=== PATIENT | female | born 1995 | race Caucasian/White ===

== ENCOUNTER 2023-03-20 00:04 | Inpatient (IN) | payer MEDICAID, OTHER ==
[2023-03-20 00:24] VITALS: BMI 40.0
[2023-03-20] MEDS ORDERED: hydrALAZINE 20 MG/ML VIAL SLOW IVP PRN ×3 (00:49→13:42)
[2023-03-20] MEDS ORDERED: Acetaminophen 325 MG TAB PO PRN ×2 (00:53→06:06)
[2023-03-20] MEDS: Lactated Ringer's 1,000 ML IV SCH ×2 (01:40→19:23)
[2023-03-20 02:17] LABS: #Neutrophils 19.2 10x3/uL (1.5-8.4); %Basophils 0.2 % (0.0-2.0); %Lymphocytes 5.1 % (18.0-47.0); %Monocytes 4.8 % (0.0-10.0); %Neutrophils 89.5 % (40.0-75.0); Hemoglobin 12.2 g/dL (12.0-15.5); Mean Corpuscular HGB CONC 32.1 g/dL (32.0-36.0); Mean Corpuscular Hemoglobin 25.7 pg (27.0-33.0); Mean Platelet Volume 9.5 fl (7.4-10.4); Platelet Count 362 10x3/uL (150-450); RBC Distribution Width 14.2 % (11.5-14.5); Red Blood Cell (RBC) Count 4.75 10x6/uL (3.90-5.03); White Blood Cell (WBC) Count 21.5 10x3/uL (3.5-10.5)
[2023-03-20 02:18] LABS: ALT (SGPT) 9 U/L (8-55); AST (SGOT) 17 U/L (5-34); Albumin 3.8 g/dL (3.5-5.0); Alkaline Phosphatase 142 U/L (40-110); Anion Gap 17 mmol/L (10-20); BUN (Urea Nitrogen) 8 mg/dL (7.0-18.7); Bilirubin, Total 0.7 mg/dL (0.2-1.2); Calc. Creatinine Clearance 192 mL/min (70-130); Carbon Dioxide 20 mmol/L (22-29); Chloride 101 mmol/L (98-107); Estimated GFR 122; Globulin 4.2 g/dL (2.4-3.5); Glucose 95 mg/dL (70-105); Potassium 3.9 mmol/L (3.5-5.1); Sodium 134 mmol/L (136-145)
[2023-03-20] MEDS ORDERED: Piperacillin/Tazobactam 3.375 GM in Sodium Chloride 0.9% 100 ML IVPB SCH (02:45)
[2023-03-20 02:49] LABS: Bilirubin Neg (Negative); Blood, Urine 50 (Negative); Clarity Clear (Clear); Glucose, Urine (Dipstick) Normal (Negative); Ketone, Urine Negative (Negative); Leukocyte 25 (Negative); Nitrite Negative (Negative); Protein, Urine (Dipstick) Negative (Neg-Trace); Specific Gravity, Urine 1.005 (1.005-1.030); Urobilinogen Normal mg/dL (Less than 2)
[2023-03-20 03:09] LABS: RBC/HPF 0-3 HPF (0-3)
[2023-03-20 03:10] LABS: Bacteria/HPF 1+ HPF (None Seen); CAUTI Indications for Culture Pregnancy; Squamous Epithelial 0-3 HPF (0-3); Urine Culture Reflex Yes Yes; WBC/HPF 0-3 HPF (0-3)
[2023-03-20 03:57] LABS: Fetal Membranes Rupture No Membranes Rupture (No Rupture)
[2023-03-20] MEDS ORDERED: fentaNYL 50 mcg/mL 1 mL Vial SLOW IVP PRN (04:21)
[2023-03-20] MEDS ORDERED: Methylergonovine 0.2 MG/ML VIAL IM PRN (04:21)
[2023-03-20] MEDS ORDERED: Misoprostol 200 MCG TAB PR PRN (04:21)
[2023-03-20] MEDS ORDERED: Ondansetron PF 4 MG/2 ML Vial IVP PRN ×3 (04:21→13:42)
[2023-03-20] MEDS ORDERED: Diphenoxylate HCl/Atropine Tablet PO PRN (04:21)
[2023-03-20] MEDS ORDERED: Carboprost 250 MCG/ML AMP IM PRN (04:21)
[2023-03-20] MEDS ORDERED: Promethazine HCl 25 MG/ML VIAL IM PRN ×3 (04:21→13:42)
[2023-03-20] MEDS ORDERED: Oxytocin 30 units/NS 500 ML 500 ML IV SCH ×2 (04:30→08:11)
[2023-03-20] MEDS ORDERED: Gentamicin 350 MG, Admixture Fee 1 EACH in Sodium Chloride 0.9% 100 ML IVPB SCH (05:00)
[2023-03-20 05:20] LABS: Syphilis Antibody Nonreactive (Nonreactive)
[2023-03-20 05:21] LABS: HBSAg Index 0.17 S/CO (0-0.99); Hep B Surf Ag - L&D Non-Reactive S/CO (NonReactive)
[2023-03-20] MEDS ORDERED: fentaNYL/Ropivacaine Epidural 100 ML ONE (05:31)
[2023-03-20] MEDS ORDERED: Naloxone HCl 0.4 mg/ml Vial IVP PRN ×2 (06:06)
[2023-03-20] MEDS ORDERED: diphenhydrAMINE 50 MG/ML VIAL IVP PRN (06:06)
[2023-03-20] MEDS ORDERED: ePHEDrine Sulfate 50 MG/10 ML VIAL SLOW IVP PRN (06:06)
[2023-03-20] MEDS ORDERED: Moisturizing Cream (Eucerin) 113 GM JAR TOP PRN (06:06)
[2023-03-20] MEDS ORDERED: Lactated Ringer's 500 ML IV PRN (06:06)
[2023-03-20] MEDS ORDERED: Communication Order-Pharmacy FS SCH (06:15)
[2023-03-20] MEDS ORDERED: fentaNYL 2 mcg/Ropivacaine 0.2% Epidural 100 ML CADD EPIDURAL SCH (06:15)
[2023-03-20] MEDS ORDERED: Bupivacaine 0.25% HCL 30 ML VIAL ONE (08:00)
[2023-03-20] MEDS ORDERED: Acetaminophen 500 MG TAB PO SCH ×2 (08:15→15:00)
[2023-03-20] MEDS ORDERED: Ampicillin 2 GM in Sodium Chloride 0.9% 100 ML IVPB SCH (12:00)
[2023-03-20] MEDS ORDERED: Milk Of Magnesia 30 ML UDCUP PO PRN (13:42)
[2023-03-20] MEDS ORDERED: Benzocaine-Menthol 82.5 ML CAN TOP PRN (13:42)
[2023-03-20] MEDS ORDERED: Lanolin Ointment 7 GM TUBE TOP PRN (13:42)
[2023-03-20] MEDS ORDERED: Bisacodyl 10 MG SUPP PR PRN (13:42)
[2023-03-20] MEDS ORDERED: diphenhydrAMINE 25 MG CAP PO PRN (13:42)
[2023-03-20] MEDS ORDERED: Boostrix 0.5 ML (Tdap) VIAL (>/=7 yrs of age) IM ONE (14:00)
[2023-03-20] MEDS: Ibuprofen 800 MG TAB PO SCH ×3 (14:59→21:02)
[2023-03-20] MEDS: HYDROcodone/Acetaminophen 5/325 mg Tablet PO PRN ×2 (17:07→21:03)
[2023-03-20] MEDS: Ferrous Sulfate 325 MG TAB PO SCH (20:59)
[2023-03-20] MEDS: Docusate 100 MG CAP PO SCH (21:03)
[2023-03-21] MEDS: HYDROcodone/Acetaminophen 5/325 mg Tablet PO PRN ×4 (02:25→20:07)
[2023-03-21] MEDS: Ibuprofen 800 MG TAB PO SCH ×3 (05:23→21:30)
[2023-03-21] MEDS: Ferrous Sulfate 325 MG TAB PO SCH (07:41)
[2023-03-21] MEDS: Prenatal Vitamin 1 TAB PO SCH (07:42)
[2023-03-21] MEDS: Docusate 100 MG CAP PO SCH ×2 (07:42→20:07)
[2023-03-22] MEDS: HYDROcodone/Acetaminophen 5/325 mg Tablet PO PRN ×3 (02:34→13:33)
[2023-03-22] MEDS: Ibuprofen 800 MG TAB PO SCH ×2 (05:00→13:32)
[2023-03-22] MEDS: Prenatal Vitamin 1 TAB PO SCH (09:06)
[2023-03-22] MEDS: Docusate 100 MG CAP PO SCH (09:06)
[2023-03-22 10:12] VITALS: BP 118/77; TEMP 98.1
[2023-03-22] MEDS: Ferrous Sulfate 325 MG TAB PO SCH (10:14)
== END 2023-03-22 15:15 | disposition home or self-care (01) | DRG 807 ==
LOC: CSHLD/OP 00:04 → CSHLD 04:21 → CSHPED 13:43
PROVIDERS: ADMIT Family Medicine; ATTEND Family Medicine
PROC: 10E0XZZ Delivery of Products of Conception, External Approach (ICD-10-PCS; principal; 2023-03-20)
DX: O75.3 Other infection during labor (principal); Z37.0 Single live birth; Z3A.37 37 weeks gestation of pregnancy
CPT/HCPCS: 36415; 51702; 76819; 80053; 81001; 83605; 84112; 85025; 86780; 86850; 86900; 86901; 87040; 87086; 87340; 88307; 99285; J0290; J1580; J2543; J2590; J3490; S0020

== ENCOUNTER 2023-03-27 20:24 | Inpatient (IN) | payer OTHER ==
[2023-03-27 21:25] LABS: Bilirubin 1+ (Negative); Blood, Urine 250 (Negative); Clarity Clear (Clear); Glucose, Urine (Dipstick) Normal (Negative); Ketone, Urine Negative (Negative); Leukocyte 25 (Negative); Nitrite Negative (Negative); Protein, Urine (Dipstick) 100 mg/dl (Neg-Trace); Urobilinogen 12 mg/dL (Less than 2)
[2023-03-27] MEDS ORDERED: Ketorolac Tromethamine 30 MG/ML VIAL ONE (21:33)
[2023-03-27] MEDS ORDERED: Ondansetron PF 4 MG/2 ML Vial ONE (21:33)
[2023-03-27 21:39] LABS: CAUTI Indications for Culture Pelvic or flank pain
[2023-03-27 21:40] LABS: #Basophils 0.2 10x3/uL (0.0-0.2); #Eosinphils 0.1 10x3/uL (0.0-0.5); #Monocytes 0.9 10x3/uL (0.0-1.1); #Neutrophils 21.5 10x3/uL (1.5-8.4); %Basophils 0.7 % (0.0-2.0); %Eosinophils 0.4 % (0.0-6.0); %Lymphocytes 6.9 % (18.0-47.0); %Monocytes 3.6 % (0.0-10.0); %Neutrophils 86.6 % (40.0-75.0); Bacteria/HPF None Seen HPF (None Seen); Hematocrit 34.2 % (34.9-44.5); Hemoglobin 10.8 g/dL (12.0-15.5); Mean Corpuscular HGB CONC 31.6 g/dL (32.0-36.0); Mean Corpuscular Hemoglobin 25.4 pg (27.0-33.0); Mean Corpuscular Volume 80.5 fl (81.6-98.3); Mean Platelet Volume 8.7 fl (7.4-10.4); Platelet Count 517 10x3/uL (150-450); RBC Distribution Width 14.6 % (11.5-14.5); Red Blood Cell (RBC) Count 4.25 10x6/uL (3.90-5.03); Squamous Epithelial 0-3 HPF (0-3); White Blood Cell (WBC) Count 24.8 10x3/uL (3.5-10.5)
[2023-03-27 21:41] LABS: Transitional Epithelial 0-3 HPF (None Seen)
[2023-03-27 21:42] LABS: Urine Culture Reflex No No
[2023-03-27 21:43] LABS: ALT (SGPT) 13 U/L (8-55); AST (SGOT) 16 U/L (5-34); Albumin 3.1 g/dL (3.5-5.0); Alkaline Phosphatase 154 U/L (40-110); Anion Gap 19 mmol/L (10-20); BUN (Urea Nitrogen) 6 mg/dL (7.0-18.7); Bilirubin, Total 0.5 mg/dL (0.2-1.2); Calc. Creatinine Clearance 0 mL/min (70-130); Calcium 9.1 mg/dL (7.8-10.44); Carbon Dioxide 23 mmol/L (22-29); Chloride 102 mmol/L (98-107); Estimated GFR 116; Globulin 4.1 g/dL (2.4-3.5); Glucose 95 mg/dL (70-105); Protein, Total 7.2 g/dL (6.0-8.3); Sodium 141 mmol/L (136-145)
[2023-03-27 22:00] LABS: Lipase Less than 4 U/L (8-78)
[2023-03-27] MEDS ORDERED: Potassium Chloride 20 MEQ TAB ONE (22:39)
[2023-03-27] MEDS ORDERED: Piperacillin/Tazobactam 4.5 GM VIAL ONE (22:39)
[2023-03-27] MEDS ORDERED: metroNIDAZOLE 500 MG/100 ML BAG ONE (22:39)
[2023-03-27] MEDS ORDERED: Lactated Ringer's 1,000 ML IV SCH (23:15)
[2023-03-27] MEDS ORDERED: Ibuprofen 800 MG TAB PO SCH (23:30)
[2023-03-27] MEDS ORDERED: Morphine 4 MG/ML VIAL ONE (23:32)
[2023-03-27] MEDS ORDERED: Vancomycin 1 GM VIAL ONE (23:32)
[2023-03-27] MEDS ORDERED: Ondansetron ODT 4 MG TAB PO PRN (23:43)
[2023-03-27] MEDS ORDERED: Polyethylene Glycol 3350 17 GM Packet PO PRN (23:43)
[2023-03-28] MEDS: Ampicillin 2 GM in Sodium Chloride 0.9% 100 ML IVPB SCH ×5 (00:38→23:40)
[2023-03-28] MEDS: Clindamycin/D5W 900 MG in Premix 1 BAG IVPB SCH ×3 (01:25→17:01)
[2023-03-28] MEDS ORDERED: Lactated Ringer's 1,000 ML IV SCH (01:45)
[2023-03-28] MEDS: fentaNYL 50 mcg/mL 1 mL Vial SLOW IVP PRN ×2 (02:54→09:47)
[2023-03-28 05:14] LABS: Anion Gap 13 mmol/L (10-20); BUN (Urea Nitrogen) 4 mg/dL (7.0-18.7); Calc. Creatinine Clearance 206 mL/min (70-130); Calcium 7.8 mg/dL (7.8-10.44); Carbon Dioxide 23 mmol/L (22-29); Chloride 109 mmol/L (98-107); Estimated GFR 125; Glucose 100 mg/dL (70-105); Potassium 2.9 mmol/L (3.5-5.1); Sodium 142 mmol/L (136-145)
[2023-03-28 05:20] LABS: Hematocrit 24.8 % (34.9-44.5); MDiff Complete? YES; Mean Corpuscular HGB CONC 32.3 g/dL (32.0-36.0); Mean Corpuscular Hemoglobin 26.2 pg (27.0-33.0); Mean Corpuscular Volume 81.3 fl (81.6-98.3); Mean Platelet Volume 8.6 fl (7.4-10.4); Platelet Count 378 10x3/uL (150-450); RBC Distribution Width 14.6 % (11.5-14.5); Red Blood Cell (RBC) Count 3.05 10x6/uL (3.90-5.03); White Blood Cell (WBC) Count 23.8 10x3/uL (3.5-10.5)
[2023-03-28] MEDS: Ibuprofen 800 MG TAB PO SCH ×3 (05:44→21:08)
[2023-03-28] MEDS: Acetaminophen 500 MG TAB PO SCH ×2 (05:44→14:36)
[2023-03-28 06:50] LABS: Band 5 % (5-11); Eosinophils 2 % (0-10); Lymphocytes 5 % (21-51); Metamyelocyte 1 % (0-0); Monocytes 5 % (0-10); Neutrophil 82 % (42-75)
[2023-03-28 06:53] LABS: Microcytosis SLIGHT = 6-15 cells (100X) (0-5/hpf)
[2023-03-28 06:54] LABS: Platelet Adequacy Comment Appears Adequate
[2023-03-28] MEDS: HYDROcodone/Acetaminophen 5/325 mg Tablet PO PRN ×3 (14:38→23:44)
[2023-03-28] MEDS: Hydrocortisone 1% Cream 30 GM TUBE TOP SCH (21:10)
[2023-03-29] MEDS: Clindamycin/D5W 900 MG in Premix 1 BAG IVPB SCH ×4 (00:53→23:55)
[2023-03-29] MEDS: HYDROcodone/Acetaminophen 5/325 mg Tablet PO PRN ×4 (04:28→21:57)
[2023-03-29 05:42] LABS: #Basophils 0.1 10x3/uL (0.0-0.2); #Eosinphils 0.3 10x3/uL (0.0-0.5); #Monocytes 0.7 10x3/uL (0.0-1.1); %Basophils 0.7 % (0.0-2.0); %Eosinophils 2.5 % (0.0-6.0); %Lymphocytes 14.8 % (18.0-47.0); %Monocytes 4.9 % (0.0-10.0); %Neutrophils 72.5 % (40.0-75.0); Hematocrit 26.2 % (34.9-44.5); Hemoglobin 8.1 g/dL (12.0-15.5); Mean Corpuscular HGB CONC 30.9 g/dL (32.0-36.0); Mean Corpuscular Hemoglobin 25.2 pg (27.0-33.0); Mean Corpuscular Volume 81.4 fl (81.6-98.3); Mean Platelet Volume 8.5 fl (7.4-10.4); Platelet Count 397 10x3/uL (150-450); RBC Distribution Width 14.6 % (11.5-14.5); Red Blood Cell (RBC) Count 3.22 10x6/uL (3.90-5.03); White Blood Cell (WBC) Count 13.8 10x3/uL (3.5-10.5)
[2023-03-29] MEDS: Ampicillin 2 GM in Sodium Chloride 0.9% 100 ML IVPB SCH ×4 (06:00→23:55)
[2023-03-29] MEDS: Ibuprofen 800 MG TAB PO SCH ×3 (06:01→21:58)
[2023-03-29] MEDS: Hydrocortisone 1% Cream 30 GM TUBE TOP SCH ×2 (09:08→21:56)
[2023-03-30] MEDS: HYDROcodone/Acetaminophen 5/325 mg Tablet PO PRN ×3 (03:46→14:51)
[2023-03-30 04:00] LABS: Hematocrit 26.5 % (34.9-44.5); Hemoglobin 8.3 g/dL (12.0-15.5); Mean Corpuscular HGB CONC 31.3 g/dL (32.0-36.0); Mean Corpuscular Hemoglobin 24.9 pg (27.0-33.0); Mean Corpuscular Volume 79.6 fl (81.6-98.3); Mean Platelet Volume 8.4 fl (7.4-10.4); Platelet Count 486 10x3/uL (150-450); RBC Distribution Width 14.7 % (11.5-14.5); Red Blood Cell (RBC) Count 3.33 10x6/uL (3.90-5.03); White Blood Cell (WBC) Count 10.3 10x3/uL (3.5-10.5)
[2023-03-30 04:44] LABS: Band 6 % (5-11); Lymphocytes 22 % (21-51); Metamyelocyte 1 % (0-0); Monocytes 1 % (0-10); Neutrophil 68 % (42-75); Reactive Lymphocytes 2 % (0-10)
[2023-03-30 04:47] LABS: Hypochromia SLIGHT = 6-15 cells (100X) (0-5/hpf); Large Platelets SLIGHT (None Seen); Microcytosis SLIGHT = 6-15 cells (100X) (0-5/hpf); Platelet Adequacy Comment Appears Adequate; Platelet Clumps SLIGHT
[2023-03-30 04:48] LABS: MDiff Complete? YES
[2023-03-30] MEDS: Ibuprofen 800 MG TAB PO SCH ×2 (06:04→12:44)
[2023-03-30] MEDS: Ampicillin 2 GM in Sodium Chloride 0.9% 100 ML IVPB SCH ×2 (06:04→12:44)
[2023-03-30 07:29] VITALS: TEMP 97.5
[2023-03-30] MEDS: Hydrocortisone 1% Cream 30 GM TUBE TOP SCH (07:56)
[2023-03-30] MEDS: Clindamycin/D5W 900 MG in Premix 1 BAG IVPB SCH (07:57)
[2023-03-30 12:16] VITALS: BP 104/61
== END 2023-03-30 19:00 | disposition home or self-care (01) | DRG 776 ==
LOC: CSHERS 20:24 → CSHPP 03-28 00:16
PROVIDERS: ADMIT Family Medicine; ATTEND Family Medicine
DX: O72.1 Other immediate postpartum hemorrhage (principal); O86.12 Endometritis following delivery; O90.89 Other complications of the puerperium, not elsewhere classified; R10.9 Unspecified abdominal pain; Z88.8 Allergy status to other drugs, medicaments and biological substances; Z79.899 Other long term (current) drug therapy; Z90.89 Acquired absence of other organs; Z80.1 Family history of malignant neoplasm of trachea, bronchus and lung; D72.829 Elevated white blood cell count, unspecified; E87.6 Hypokalemia
CPT/HCPCS: 36415; 76856; 80048; 80053; 81001; 83605; 83690; 83735; 83880; 85025; 87040; 88305; 93005; 96365; 96367; 96368; 96375; J0290; J1580; J1885; J2270; J2405; J2543; J3010; J3370; J3490; J7120

== ENCOUNTER 2025-04-10 00:23 | Inpatient (IN) | payer OTHER ==
[2025-04-10 00:58] VITALS: BMI 40.9
[2025-04-10] MEDS ORDERED: hydrALAZINE 20 MG/ML VIAL SLOW IVP PRN ×3 (01:23→15:29)
[2025-04-10 01:40] LABS: Fetal Membranes Rupture No Membranes Rupture (No Rupture)
[2025-04-10] MEDS ORDERED: Diphenoxylate HCl/Atropine Tablet PO PRN ×2 (04:08)
[2025-04-10] MEDS ORDERED: Acetaminophen 500 MG TAB PO PRN (04:08)
[2025-04-10] MEDS ORDERED: Ondansetron PF 4 MG/2 ML Vial IVP PRN ×3 (04:08→15:29)
[2025-04-10] MEDS ORDERED: Lidocaine 1% (PF) 30 ML VIAL SC PRN (04:08)
[2025-04-10] MEDS ORDERED: Carboprost 250 MCG/ML AMP IM PRN (04:08)
[2025-04-10] MEDS ORDERED: Methylergonovine 0.2 MG/ML VIAL IM PRN (04:08)
[2025-04-10] MEDS ORDERED: Tranexamic Acid 1,000 MG/10 ML VIAL IVP PRN (04:08)
[2025-04-10] MEDS ORDERED: Oxytocin 30 units/NS 500 ML 500 ML IV SCH ×2 (04:15)
[2025-04-10 04:58] LABS: Hematocrit 39.4 % (34.9-44.5); Hemoglobin 13.2 g/dL (12.0-15.5); Mean Corpuscular Hemoglobin 28.2 pg (27.0-33.0); Mean Corpuscular Volume 84.2 fL (81.6-98.3); Platelet Count 261 10x3/uL (150-450); Red Blood Cell (RBC) Count 4.68 10x6/uL (3.90-5.03); White Blood Cell (WBC) Count 9.17 10x3/uL (3.5-10.5)
[2025-04-10 05:31] LABS: Hep B Surf Ag - L&D Non-Reactive S/CO (NonReactive)
[2025-04-10 05:32] LABS: Syphilis Antibody Index 0.07 S/CO (<1.00 Non-Reactive)
[2025-04-10] MEDS ORDERED: Bupivacaine 0.25% HCL 30 ML VIAL ONE (09:00)
[2025-04-10] MEDS ORDERED: Bupivacaine/Epinephrine 0.25% 30 ML VIAL ONE (09:00)
[2025-04-10] MEDS ORDERED: Lidocaine 2% MPF 10 ML AMP (For Epidural Use) ONE (09:00)
[2025-04-10] MEDS: fentaNYL/Ropivacaine Epidural 100 ML ONE (10:18)
[2025-04-10] MEDS ORDERED: fentaNYL 2 mcg/Ropivacaine 0.2% Epidural 100 ML CADD EPIDURAL SCH (10:30)
[2025-04-10] MEDS ORDERED: diphenhydrAMINE 50 MG/ML VIAL IVP PRN (10:30)
[2025-04-10] MEDS ORDERED: Communication Order-Pharmacy FS SCH (10:30)
[2025-04-10] MEDS ORDERED: Acetaminophen 325 MG TAB PO PRN (10:30)
[2025-04-10] MEDS: Ibuprofen 800 MG TAB PO PRN (14:15)
[2025-04-10] MEDS ORDERED: diphenhydrAMINE 25 MG CAP PO PRN (15:29)
[2025-04-10] MEDS ORDERED: Milk Of Magnesia 30 ML UDCUP PO PRN (15:29)
[2025-04-10] MEDS ORDERED: Bisacodyl 10 MG SUPP PR PRN (15:29)
[2025-04-10] MEDS ORDERED: Lanolin Ointment 7 GM TUBE TOP PRN (15:29)
[2025-04-10] MEDS: Ibuprofen 800 MG TAB PO SCH ×2 (16:05→20:16)
[2025-04-10] MEDS: HYDROcodone/Acetaminophen 5/325 mg Tablet PO PRN (16:10)
[2025-04-10] MEDS: Ferrous Sulfate 325 MG TAB PO SCH (16:20)
[2025-04-11 12:06] VITALS: BP 102/58; TEMP 98.1
[2025-04-11] MEDS: Acetaminophen 500 MG TAB PO SCH (12:08)
== END 2025-04-11 19:45 | disposition home or self-care (01) | DRG 807 ==
LOC: CSHLD/OP 00:23 → CSHLD 04:18 → CSHPP 15:25
PROVIDERS: ADMIT Family Medicine; ATTEND Family Medicine
PROC: 10E0XZZ Delivery of Products of Conception, External Approach (ICD-10-PCS; principal; 2025-04-10)
PROC: 10907ZC Drainage of Amniotic Fluid, Therapeutic from Products of Conception, Via Natural or Artificial Opening (ICD-10-PCS; 2025-04-10)
PROC: 4A1HXCZ Monitoring of Products of Conception, Cardiac Rate, External Approach (ICD-10-PCS; 2025-04-10)
DX: O99.214 Obesity complicating childbirth (principal); Z37.0 Single live birth; Z3A.38 38 weeks gestation of pregnancy; Z91.048 Other nonmedicinal substance allergy status; Z79.899 Other long term (current) drug therapy; Z79.82 Long term (current) use of aspirin
CPT/HCPCS: 51702; 84112; 85027; 86780; 86850; 86900; 86901; 87340; 99285; J0665